=== PATIENT | female | born 1995 | race Caucasian/White ===

== ENCOUNTER 2016-07-26 21:48 | Emergency (ER) | payer BC ==
--- NOTE | ~2016-07-26 | CT2 ---
[facility] A Service [facility] RADIOLOGY TEXT RESULTS PATIENT: MARYBETH HERNANDES LOCATION: SED : [birth year] UNIT #: [id number] AGE: [address]: ALBERTO NGUYEN SEX: F ORDER DR: [id number] [address] [address] [id number] E MR#: [id number] Acc #: [id number] NAME: MARYBETH HERNANDES : 1995 SEX: F STUDY DATE/TIME: 07/26/2016 23:17 UNIT: SED ROOM: STUDY DESCRIPTION: CT Abd and Pelv W Cont Attending Physician: Alberto Nguyen Ordering Physician: Physician Non-Staff Primary Care Physician: Primary Care Physician No MEDICAL IMAGING REPORT This report is preliminary unless electronic signature is present. EXAM CT abdomen and pelvis INDICATION Abdominal pain and vomiting. Lightheadedness. TECHNIQUE CT abdomen and pelvis utilizing 100 mL Isovue-370 IV contrast. Coronal and sagittal reconstructions were obtained. This CT exam was performed with one or more of the following radiation dose reduction techniques: automatic exposure control, adjustment of mA and/or kV according to patient size, and iterative reconstruction. COMPARISON Acute abdominal series 06/26/2011. FINDINGS ABDOMEN: Diffusely diminished attenuation throughout the hepatic parenchymal is indicative of hepatic steatosis. Gallbladder, pancreas, spleen, and adrenal glands are within normal limits. Kidneys enhance normally. The bowel is not dilated. The appendix is normal. PELVIS: Uterus and ovaries are within normal limits. Bladder is unremarkable. No enlarged pelvic or inguinal lymph nodes. No acute osseous abnormalities. There is a well corticated nonaggressive lesion in the posterior left acetabulum which is probably a bone island. IMPRESSION No acute findings in the abdomen or pelvis. No findings to account for the patient's symptoms. [facility] A Service [facility] RADIOLOGY TEXT RESULTS PATIENT: MARYBETH HERNANDES LOCATION: SED : 96 UNIT #: [id number] AGE: [address]: ALBERTO NGUYEN SEX: F ORDER DR: Dictated by... Cody Jaramillo M.D. THIS IS AN ELECTRONICALLY VERIFIED REPORT Cody Jaramillo M.D. at 07/31/2016 7:03 AM SHANDA/maninder TD: 07/26/2016 23:55 JOB #: [id number] MEDICAL IMAGING REPORT Page 1 of 1
[~2016-07-26 21:48] MED LIST: ACETAMINOPHEN; ALBUTEROL17 GM INH; BIRTH CONTROL; CIPRO PO; EC-NAPROSYN500 MG PO; IBUPROFEN PO; KEFLEX250 M3 PO; MOTRIN600 MG PO; NO MEDICATIONS; PHENERGAN25 MG PO; PROAIR; PROAIR HFA8.5 GM INH; PYRIDIUM PO; ROBAXIN500 MG PO; VISTARIL PO; VOLTAREN75 MG PO; ZOFRANODT SL
[2016-07-26 22:35] LABS: URINE SOURCE CLEAN CATCH
[2016-07-26 22:36] LABS: BASOPHIL# 0.1 X10e3 (0-0.3); BASOPHIL% 0.7 % (0-2.5); EOSINOPHIL# 0.1 X10e3 (0-0.7); EOSINOPHIL% 1.1 % (0.0-7.0); HEMATOCRIT 40.2 % (35.0-45.0); LYMPHOCYTE# 2.1 X10e3 (1.0-3.5); LYMPHOCYTE% 28.2 % (17.0-45.0); MEAN CELL VOLUME 89.9 FL (83-96); MEAN CORPUSCULAR HEMOGLOBIN 31.4 PG (28-34); MEAN CORPUSCULAR HGB CONC 34.9 g/dL (30-36); MEAN PLATELET VOLUME 8.9 FL (6.5-11.5); MONOCYTE# 0.6 X10e3 (0-1.0); MONOCYTE% 7.8 % (3.0-12.0); NEUTROPHIL# 4.6 X10e3 (1.5-7.1); NEUTROPHIL% 62.2 % (40-75); PLATELET COUNT 246 X10e3 (140-420); RED BLOOD COUNT 4.47 X10e (3.90-5.30); RED CELL DISTRIBUTION WIDTH 12.6 % (11.0-15.5); WHITE BLOOD COUNT 7.3 X10e3 (4.0-10.5)
[2016-07-26 22:38] LABS: DIFF IND NO; URINE APPEARANCE CLEAR; URINE BILIRUBIN NEG (NEG); URINE BLOOD TRACE-INTACT (NEG); URINE COLOR YELLOW; URINE GLUCOSE NEG (NORM); URINE KETONE NEG (NEG); URINE LEUKOCYTE ESTERASE TRACE (NEG); URINE NITRATE NEG (NEG); URINE PROTEIN NEG (NEG)
[2016-07-26 22:39] LABS: MICRO INDICATED? YES
[2016-07-26 22:44] LABS: CULTURE INDICATED? NO; URINE BACTERIA NEG (NEG); URINE SQUAMOUS EPITHELIAL CELL OCCAS /[HPF]
[2016-07-26 22:48] LABS: ALBUMIN SERUM 4.4 g/dL (3.5-5.0); ALKALINE PHOSPHATASE 58 U/L (32-92); ALT (SGPT) 29 U/L (10-40); AST (SGOT) 25 U/L (10-42); BILIRUBIN,TOTAL 0.4 mg/dL (0.2-2.0); BLOOD UREA NITROGEN 14 mg/dL (9-23); CALCIUM SERUM 9.1 mg/dL (8.4-10.2); CARBON DIOXIDE 25 mmol/L (22-31); CHLORIDE 103 mmol/L (100-111); CREATININE SERUM 0.8 mg/dL (0.6-1.4); GLOM FILT RATE Estimated 106.2 mL/min (>60); GLUCOSE FASTING 91 mg/dL (70-110); LIPASE 31 U/L (22-51); POTASSIUM 3.6 mmol/L (3.5-5.1); PROTEIN TOTAL SERUM 7.6 g/dL (6.0-8.3); SODIUM 136 mmol/L (135-145)
[2016-07-26 22:49] LABS: BILIRUBIN, DIRECT <0.1 mg/dL (0.0-0.2); BILIRUBIN,INDIRECT 0.3 mg/dL (0.0-0.9)
== END 2016-07-27 00:04 | disposition home or self-care (01) ==
LOC: SED 21:48
PROVIDERS: Physician Assistant
DX: R10.9 Unspecified abdominal pain (principal); R11.2 Nausea with vomiting, unspecified; J45.909 Unspecified asthma, uncomplicated; F41.9 Anxiety disorder, unspecified
CPT/HCPCS: 36415; 74177; 80048; 80076; 81003; 83690; 84703; 85025; 96361; 96374; 99284; J2405; Q9967

== ENCOUNTER 2016-11-20 12:37 | Emergency (ER) | payer BC ==
--- NOTE | ~2016-11-20 | CT71 ---
[facility] A Service [facility] RADIOLOGY TEXT RESULTS PATIENT: MARYBETH HERNANDES LOCATION: SED : 96 UNIT #: [id number] AGE: [address]: Billie Cuadra MD SEX: F ORDER DR: [id number] [address] [address] [id number] E MR#: [id number] Acc #: [id number] NAME: MARYBETH HERNANDES : 1995 SEX: F STUDY DATE/TIME: 11/20/2016 13:03 UNIT: SED ROOM: STUDY DESCRIPTION: CT Head Wo Contrast Attending Physician: Billie Cuadra M.D. Ordering Physician: Billie Cuadra M.D. Primary Care Physician: Primary Care Physician No MEDICAL IMAGING REPORT This report is preliminary unless electronic signature is present. EXAM Head CT without contrast HISTORY Patient fell in the shower with head injury, 1.5 hours prior to arrival TECHNIQUE Axial imaging was obtained through the brain without contrast. This CT exam was performed with one or more of the following radiation dose reduction techniques: automatic exposure control, adjustment of mA and/or kV according to patient size, and iterative reconstruction. COMPARISON 10/07/2014 FINDINGS The brain images are normal with no evidence of mass, hemorrhage or edema. No midline shift. Extraaxial structures are remarkable for mucosal thickening in the maxillary sinuses. IMPRESSION Chronic inflammatory sinus disease. Otherwise normal. Dictated by... Rich Alexander M.D. THIS IS AN ELECTRONICALLY VERIFIED REPORT Rich Alexander M.D. at 11/22/2016 4:01 PM RLF/to TD: 11/20/2016 19:08 JOB #: [id number] [facility] A Service [facility] RADIOLOGY TEXT RESULTS PATIENT: MARYBETH HERNANDES LOCATION: SED : 96 UNIT #: [id number] AGE: [address]: Billie Cuadra MD SEX: F ORDER DR: MEDICAL IMAGING REPORT Page 1 of 1
== END 2016-11-20 13:26 | disposition home or self-care (01) ==
LOC: SED 12:37
DX: S09.90XA Unspecified injury of head, initial encounter (principal); D64.9 Anemia, unspecified; W01.198A Fall on same level from slipping, tripping and stumbling with subsequent striking against other object, initial encounter; Y92.009 Unspecified place in unspecified non-institutional (private) residence as the place of occurrence of the external cause
CPT/HCPCS: 70450; 99283